=== PATIENT | male | born 2005 | race African-American/Black ===

== ENCOUNTER 2025-06-04 15:37 | Emergency (ER) | payer BC ==
[~2025-06-04] VITALS: Ht 170.2 cm; Wt 62.0 kg
[2025-06-04 15:40] VITALS: TEMP 36.8; O2SAT 100
[2025-06-04 17:37] LABS: CLARITY URINE CLEAR (CLEAR); COLOR URINE YELLOW (YELLOW); GLUCOSE URINE NEGATIVE (NEGATIVE); KETONES URINE NEGATIVE (NEGATIVE); LEUKOCYTE ESTERASE URINE NEGATIVE (NEGATIVE); NITRITE URINE NEGATIVE (NEGATIVE); OCCULT BLOOD URINE NEGATIVE (NEGATIVE); PH URINE 7.0 (4.5-8.0); PROTEIN URINE NEGATIVE (NEGATIVE); SPECIFIC GRAVITY URINE 1.024 (1.005-1.030); UROBILINOGEN URINE 1.0 E.U./dL (0.2-1.0)
[2025-06-04] MEDS: DOXYCYCLINE HYCLATE 100MG CAPSULE PO ONE (19:57)
[2025-06-04] MEDS: CEFTRIAXONE SODIUM 500MG VIAL IM ONE (19:57)
[2025-06-04] MEDS ORDERED: VALA10002 MT (21:25)
[2025-06-04] MEDS ORDERED: DOXY150T8 MT (21:25)
[2025-06-04 22:48] VITALS: BP 131/78; PULSE 60; RESP 18; O2SAT 100
== END 2025-06-04 22:49 | disposition home or self-care (01) ==
LOC: ER 15:37
DX: A64 Unspecified sexually transmitted disease (principal)
CPT/HCPCS: 87491; 87591; 81003; 96372; 99283; J0696; Z7610